=== PATIENT | female | born 1955 | race Caucasian/White ===

== ENCOUNTER → 2017-10-01 | Outpatient (CLI) | payer OTHER ==
[~2017-10-01] MED LIST: ACTI1/05PT PO; ADV250/50 INH; ALBUTEROL INHALER; FLUT16SP19 NS; GADOBENATE 529MG/1ML 15ML VIAL IVP ONE; HYDR12.561 PO; MON10 PO; POTA8TAB41 PO; ROS10 PO
--- NOTE | 2017-10-01 10:14 | RADIOLOGY IMAGING REPORT ---
[place] [facility] [place] Cathy Blount : 1955 MR: [id number] V: [id number] EXAM DATE: ORDERING PHYSICIAN: JOSTIN MYLES TECHNOLOGIST: Location: [facility] Patient: Cathy Blount : 1955 Visit/Account:[id number] Date of Sevice: 10/01/2017 Examination: MR brain without and with contrast History: Tremor, weakness right arm Comparison: None Technique: Multiplane MR imaging was performed through the brain without and with contrast. 13 cc IV multihance was administered. Findings: Diffusion: None Ventricles: Normal Midline shift: None Extraxial fluid: None Midline craniocervical structures: Normal Parenchyma: Less since less than 10 scattered punctate white matter high signal foci. Enhancement: No pathologic enhancement Vascular flow voids: Normal Orbits and paranasal sinuses: Normal. Other: Trace to small bilateral mastoid effusions. Impression: 1. Less than 10 nonspecific punctate white matter high signal foci statistically represent minimal ch ronic small vessel ischemic change. 2. Otherwise normal brain MR without and with contrast. Report Dictated By: Yunior Kinsey MD at 10/01/2017 9:55 AM Report E-Signed By: Yunior Kinsey MD at 10/01/2017 10:09 AM WSN:[id number]
== END ==
LOC: MRI 02:35
PROVIDERS: ATTEND Nurse Practitioner Family
DX: I67.9 Cerebrovascular disease, unspecified (principal)
CPT/HCPCS: 36415; 70553; 82565; A9577

== ENCOUNTER → 2017-10-14 | Outpatient (CLI) | payer OTHER ==
[~2017-10-14] MED LIST changes: -GADOBENATE 529MG/1ML 15ML VIAL IVP ONE
--- NOTE | 2017-10-18 08:30 | RADIOLOGY IMAGING REPORT ---
FACILITY: [facility] - [place] PATIENT NAME: ANNE MALDONADO : [id number] MR: [id number] V: [id number] EXAM DATE: [id number] ORDERING PHYSICIAN: JOSTIN MYLES TECHNOLOGIST: Brook Williamson PROCEDURE:BILATERAL DIGITAL SCREENING MAMMOGRAM WITH CAD ASSISTED INTERPRETATION & 3D TOMOSYNTHESIS COMPARISON:Prior mammograms 04/16/16 and priors to 09/15/12. INDICATIONS:SCREENING FINDINGS: Breast parenchyma is heterogeneously dense. There are no mammographic findings concerning for malignancy. No significant change from priors. DIAGNOSTIC CATEGORY 1--NEGATIVE. RECOMMENDATIONS: ROUTINE MAMMOGRAM AND CLINICAL EVALUATION IN 1 YR. IMPRESSION: BIRADS 1: Negative. Dictated by: Rodrigo Kapoor on 10/15/2017 at 10:07 Transcribed by: DIAZ on 10/15/2017 at 10:36 Approved by: Ashkan Macario M.D. on 10/18/2017 at 8:29 [facility]
== END ==
LOC: MAMO 01:21
PROVIDERS: ATTEND Nurse Practitioner Family
DX: Z12.31 Encounter for screening mammogram for malignant neoplasm of breast (principal)
CPT/HCPCS: 77063; 77067